=== PATIENT | male | born 1990 | race Caucasian/White ===

== ENCOUNTER 2023-10-03 08:49 | Outpatient (CLI) | payer BC | END 2023-10-03 08:50 | disposition home or self-care (01) | LOC: SCSRAD 08:49 | PROVIDERS: ATTEND Family Medicine | DX: M51.26 Other intervertebral disc displacement, lumbar region (principal); M47.816 Spondylosis without myelopathy or radiculopathy, lumbar region | CPT/HCPCS: 72120 ==